=== PATIENT | female | born 1970 | race African-American/Black ===

== ENCOUNTER 2018-04-01 23:45 | Emergency (ER) | payer OTHER ==
[~2018-04-01] VITALS: Ht 172.7 cm; Wt 72.6 kg
[2018-04-02] MEDS ORDERED: BACTRIM DS TAB1 EACH PO (00:18)
[2018-04-02] MEDS ORDERED: TRAMADOL 50 MG50 MG PO (00:19)
[2018-04-02] MEDS ORDERED: MOBIC15 MG PO (00:19)
[2018-04-02] MEDS ORDERED: CLEOCIN HCL150 MG PO (00:20)
[2018-04-02] MEDS ORDERED: NORCO 5-325 TA1 EACH PO (00:21)
[2018-04-02] MEDS ORDERED: MAXZIDE-25 MG1 EACH PO (00:28)
[2018-04-02 00:31] LABS: ABSOLUTE EOSINOPHILS 0.1 thou/uL (0.0-0.7); ABSOLUTE LYMPHOCYTES 3.3 thou/uL (0.8-5.3); ABSOLUTE MONOCYTES 0.8 thou/uL (0.0-1.2); ABSOLUTE NEUTROPHILS 3.5 thou/uL (1.6-8.1); BASOPHILS 0.2 %; EOSINOPHILS 1.4 %; HEMATOCRIT 41.4 % (37.0-47.0); HEMOGLOBIN 13.8 gm/dL (12.0-15.0); LYMPHOCYTES 42.6 %; MCHC 33.4 g/dL (28.0-37.0); MCV 90.1 fL (80.0-100.0); MONOCYTES 10.7 %; MPV 8.5 fl. (7.2-11.1); NUCLEATED RBCS 0 /100WBC; PLATELET COUNT* 268 thou/uL (150-400); POLYS 45.1 %; RDW-CV 12.6 % (10.5-14.5); WBC 7.8 thou/uL (4.0-11.0)
[2018-04-02 00:39] LABS: CALCIUM 9.2 mg/dL (8.5-10.1); CREATININE 1.2 mg/dL (0.6-1.3); POTASSIUM 3.2 mmol/L (3.5-5.1)
[2018-04-02] MEDS ORDERED: PHENERGAN 25 MG25 M1 PO (02:18)
[2018-04-02] MEDS ORDERED: LOPRESSOR25 PO (02:18)
[2018-04-02] MEDS ORDERED: PERCOCET 7.5-31 EACH PO (02:18)
[2018-04-02 02:36] VITALS: BP 159/90
--- NOTE | 2018-04-02 10:30 | EKG ---
[place] [address] ELECTROCARDIOGRAM REPORT Name: ABUNDIO DOLAN [id number] Admission: 04/01/18 Attend Phys: Discharge: 04/02/18 Date of : 74 Report #: [id number] THIS REPORT FOR: //name// [facility] ED Test Date: 2018-04-02 Test Time: 00:12:28 Pat Name: ABUNDIO DOLAN Department: Room: Gender: F Radiology Specialist: CHARO : 1970 Requested By: Radha Carty Order Number: [id number] Andreina MD: Lewis Osborne Measurements Intervals [place]ine Rate: 75 P: 72 PA: 158 QRS: -26 QRSD: 86 T: 54 QT: 366 QTc: 409 Interpretive Statements Sinus rhythm Borderline left axis deviation Borderline low voltage, extremity leads No previous ECG available for comparison Electronically Signed On 04-02-2018 10:30:37 IN [employer] TECHNICIAN by Lewis Osborne [email or web address] <ELECTRONICALLY SIGNED> By: Lewis Osborne MD, [facility] 04/02/18 1030 0012 001 Lewis Osborne MD, FACC /EPI
== END 2018-04-02 02:41 | disposition home or self-care (01) ==
LOC: M.ERS 23:45
PROVIDERS: Emergency Medicine
DX: K04.7 Periapical abscess without sinus (principal); I10 Essential (primary) hypertension; Z91.040 Latex allergy status